=== PATIENT | male | born 1965 | race Caucasian/White ===

== ENCOUNTER 2023-03-21 13:50 | Emergency (ER) | payer MEDICAID ==
[~2023-03-21] VITALS: Ht 193 cm; Wt 173.2 kg
[2023-03-21 13:54] VITALS: BP 163/76; PULSE 46; RESP 24; O2SAT 100
[2023-03-21 16:26] LABS: CLARITY,URINE CLOUDY (Clear); COLOR,URINE YELLOW (Yellow); GLUCOSE, URINE NEGATIVE (Neg); KETONES,URINE 15 mg/dl (Neg); LEUKOCYTE ESTERASE ,URINE NEGATIVE (Neg); NITRITES, URINE POSITIVE (Neg); OCCULT BLOOD,URINE LARGE (Neg); PH,URINE 5.5 (4.8-8.0); PROTEIN,URINE 30 mg/dl (Neg)
[2023-03-21 16:29] LABS: UA COLLECTION TYPE VOIDED
[2023-03-21 16:32] LABS: BACTERIA,URINE 1+ /HPF (Neg); MUCUS STRANDS FEW /LPF (Neg); RBC,URINE 20-50 /HPF (0-2); SQUAMOUS EPITHELIAL CELL,UR FEW /LPF (FEW); WBC,URINE 0-4 /HPF (0-4)
[2023-03-21 16:33] LABS: AMORPHOUS URATES 2+
[2023-03-21] MEDS ORDERED: lactulose 20gm/30ml cup PO ONE (17:30)
[2023-03-21] MEDS ORDERED: CefTRIAXone 250MG inj IM ONE (18:10)
[2023-03-21] MEDS ORDERED: azithromycin 250mg tablet PO ONE (18:10)
[2023-03-21] MEDS ORDERED: DOXY-356 PO (18:13)
[2023-03-21] MEDS ORDERED: CefTRIAXone 1000mg IM Kit (w/lidocaine diluent) IM ONE (18:15)
== END 2023-03-21 18:35 | disposition home or self-care (01) ==
LOC: ER 13:52
DX: N39.0 Urinary tract infection, site not specified (principal); K59.00 Constipation, unspecified; M54.50 Low back pain, unspecified; R42 Dizziness and giddiness
CPT/HCPCS: 81001; 87088; 93005; 96372; 99284; J0696